=== PATIENT | female | born 1980 | race Caucasian/White ===

== ENCOUNTER 2019-04-07 17:57 | Observation (INO) | payer MEDICARE ==
[~2019-04-07] VITALS: Ht 172.7 cm; Wt 54.5 kg
--- NOTE | 2019-04-07 19:23 | NUR ---
HAND OFF REPORT GIVEN TO MINDI RANKIN
[2019-04-07 19:24] LABS: BASOPHILS 0.3 % (0-2); EOSINOPHILS 1.6 % (0-7); HEMATOCRIT 39.1 % (36.0-48.0); HEMOGLOBIN 13.2 g/dL (12-16); IMMATURE GRANULOCYTES 0.3 % (0-5); MCH 31.2 pg (26.0-34.0); MCHC 33.8 g/dL (31.0-37.0); MCV 92.4 fL (80.0-100.0); MEAN PLATELET VOLUME 9.2 fL (7.4-10.4); NEUTROPHILS 67.8 % (40-80); PLATELET COUNT 311 10x3/uL (130-400); RBC 4.23 10x6/uL (4.00-5.40); RDW 13.2 % (11.5-14.5); WBC 11.6 10x3/uL (4.8-10.8)
[2019-04-07 19:31] LABS: APPEARANCE CLEAR (CLEAR); BILIRUBIN NEGATIVE (NEGATIVE); COLOR STRAW (YELLOW); GLUCOSE NEGATIVE (NEGATIVE); KETONE NEGATIVE (NEGATIVE); NITRITE NEGATIVE (NEGATIVE); PROTEIN NEGATIVE (NEGATIVE); SPECIFIC GRAVITY 1.005 (1.005-1.020); UROBILINOGEN NORMAL (NORMAL)
[2019-04-07 19:32] LABS: BACTERIA FEW /hpf (NONE SEEN); EPITHELIAL CELLS 0-5 /hpf (0-5); RED CELLS - URINE RARE /hpf (0-5); WHITE CELLS - URINE 0-5 /hpf (0-5)
[2019-04-07 19:48] LABS: ALKALINE PHOSPHATASE 59 U/L (46-116); ALT (SGPT) 27 U/L (10-68); BILIRUBIN - TOTAL 0.23 mg/dL (0.2-1.3); CALC OSMOLALITY 268 mosm/kg (275-300); CALCIUM 8.7 mg/dL (8.5-10.1); CHLORIDE - SERUM 100 mmol/L (98-107); CREATININE - SERUM 0.8 mg/dL (0.6-1.3); GLUCOSE 91 mg/dL (74-106); POTASSIUM - SERUM 3.5 mmol/L (3.5-5.1); PROTEIN - SERUM 7.7 g/dL (6.4-8.2); SODIUM 135 mmol/L (136-145); UREA NITROGEN 10 mg/dL (7-18); eGFR NON AFRICAN AMERICAN 84 mL/min (90-120)
[2019-04-07 20:57] LABS: LIPASE 141 U/L (73-393); MAGNESIUM - SERUM 2.1 mg/dL (1.8-2.4); PRO BNP 40 pg/mL (0-125); THYROID STIMULATING HORMONE 3.05 uIU/mL (0.36-3.74)
[2019-04-07 21:00] LABS: TROPONIN-I < 0.017 ng/mL (0.000-0.060)
[2019-04-07 22:05] LABS: HCG URINE NEGATIVE (NEGATIVE)
[2019-04-07 22:10] LABS: UDS - AMPHET NEGATIVE QUAL (NEGATIVE); UDS - BARB NEGATIVE QUAL (NEGATIVE); UDS - BENZO NEGATIVE QUAL (NEGATIVE); UDS - COCAINE NEGATIVE QUAL (NEGATIVE); UDS - OPIATE NEGATIVE QUAL (NEGATIVE); UDS - PCP NEGATIVE QUAL (NEGATIVE); UDS - THC NEGATIVE QUAL (NEGATIVE)
[2019-04-07 23:23] VITALS: BP 130/73; Ht 172.7 cm; Wt 54.5 kg
[2019-04-08] VITALS: BP 118/73
[2019-04-08 04:00] VITALS: BP 95/55
--- NOTE | 2019-04-08 04:00 | NUR ---
RECIEVED PT FROM ED VIA BED. ALERT AND ORIENTED X4. RESPIRATIONS EVEN AND UNALBORED. VS STABLE AND AFEBRILE. NO VISUAL CUES OF DISTRESS NOTED. FAMILY MEMBER AT BEDSIDE. BED LOW, SIDE RAILS UP X2. CALL LIGHT IN REACH. WILL CONTINUE TO MONITOR.
[2019-04-08 08:29] LABS: BASOPHILS 0.4 % (0-2); EOSINOPHILS 1.8 % (0-7); HEMATOCRIT 36.5 % (36.0-48.0); HEMOGLOBIN 12.5 g/dL (12-16); IMMATURE GRANULOCYTES 0.3 % (0-5); LYMPHOCYTES 23.1 % (15-50); MCH 31.1 pg (26.0-34.0); MCHC 34.2 g/dL (31.0-37.0); MCV 90.8 fL (80.0-100.0); MEAN PLATELET VOLUME 9.2 fL (7.4-10.4); MONOCYTES 6.5 % (2-11); NEUTROPHILS 67.9 % (40-80); PLATELET COUNT 269 10x3/uL (130-400); RBC 4.02 10x6/uL (4.00-5.40); RDW 13.2 % (11.5-14.5)
[2019-04-08 08:50] LABS: CALC OSMOLALITY 277 mosm/kg (275-300); CALCIUM 8.3 mg/dL (8.5-10.1); CARBON DIOXIDE 24.2 mmol/L (21.0-32.0); CHLORIDE - SERUM 104 mmol/L (98-107); CREATININE - SERUM 0.8 mg/dL (0.6-1.3); POTASSIUM - SERUM 3.6 mmol/L (3.5-5.1); SODIUM 138 mmol/L (136-145); UREA NITROGEN 9 mg/dL (7-18); eGFR NON AFRICAN AMERICAN 84 mL/min (90-120)
[2019-04-08 08:51] LABS: GLUCOSE 156 mg/dL (74-106)
[2019-04-08 09:13] VITALS: BP 118/66
--- NOTE | 2019-04-08 10:19 | NUR ---
PT ALERT X 4. BREATH SOUNDS CLEAR BILAT. IV TO LEFT AC, SALINE LOCKED. PT REPORTED WORSENING HEADACHE, RATED 5/10, NOTIFIED NURSE PRACTITIONER. PT SITTING UP IN BED. FAMILY AT BEDSIDE. BED LOW, CALL LIGHT IN REACH. NO OTHER NEEDS AT THIS TIME.
--- NOTE | 2019-04-08 13:06 | NUR ---
PT IS BEING TRANSFERRED TO [facility] FOR NEURO. AMBULANCE HERE. PT IS REFUSING TO GO DUE TO THE FACT THAT SHE AND THE FAMILY UNDERSTOOD THE TRANSFER WAS TO BE TO [facility] IN [place] AND THE MOTHER( FAMILY) COULD RIDE IN THE AMBULANCE WITH PT. CDC ASSOCIATE( THIS APPLIED COMPUTER SCIENCE PROFESSOR) SPOKE WITH PT AND FAMILY AND EXPLAINED THE TRANSFER WAS TO [facility] AND EMS POLICY IS NO FAMILY ALLOWED IN AMBULANCE. MOTHER IS VERY UPSET AND SAYS HER CAR CAN NOT MAKE IT TO [place]. SHE WANTS THE PHYSICIAN CALLED. DR. JOHNSON CALLED AND HE EXPLAINED TO PT WHERE SHE WAS GOING AND WHY. PT ACCEPTS THE TRANSFER. MOM IS GOING BY [facility] TO HOSPITAL.
--- NOTE | 2019-04-08 13:15 | NUR ---
PT DISCHARGED. PAPERWORK SIGNED ALL QUESTIONS ANSWERED. TRANSFERRED BY [facility].
--- NOTE | 2019-04-08 14:06 | MORECARE ---
CASE MANAGEMENT DISCHARGE SUMMARY PATIENT: NEAL KELLER UNIT: [id number] ADM DATE: 04/07/19 AGE: 38 : 78 SEX: F ROOM/BED: D.2239 AUTHOR: ALTAF RIVERA PHYSICIAN: REFERRING PHYSICIAN: THANG JOHNSON MD DATE OF SERVICE: 04/08/19 Discharge Plan Patient Name: NEAL KELLER [facility] [facility] 1980 Planned Disposition: Acute Care Hospital Anticipated Discharge Date: 04/08/19 Discharge Date: Expected LOS: 1 Initial Reviewer: [email or web address] Initial Review Date: 04/07/2019 Generated: 04/08/19 3:06 pm Patient Name: NEAL KELLER Page 34811 at 1406 All edits/amendments must be made on the electronic document DICTATION DATE: 04/08/19 140 [employer] MANAG[employer] INTER[employer]IP: HARMEET 04/08/19 1405 RPT#: [id number] DC DATE: STATUS: ADM IN [facility] [address] [place] [address] END OF REPORT
--- NOTE | 2019-04-08 14:19 | MORECARE ---
CASE MANAGEMENT DISCHARGE SUMMARY PATIENT: NEAL KELLER UNIT: [id number] ADM DATE: 04/07/19 AGE: 38 : 76 SEX: F ROOM/BED: D.2239 AUTHOR: ALTAF RIVERA PHYSICIAN: REFERRING PHYSICIAN: THANG JOHNSON MD DATE OF SERVICE: 04/08/19 Discharge Plan Patient Name: NEAL KELLER Facility: [facility]:[place] : 1980 Planned Disposition: Acute Care Hospital Anticipated Discharge Date: 04/08/19 Discharge Date: Expected LOS: 1 Initial Reviewer: [email or web address] Initial Review Date: 04/07/2019 Generated: 04/08/19 3:19 pm Comments DCP- Discharge Planning Updated by [email or web address]: Adrienne Harrington on 04/08/19 1:[address] LATE ENTRY 1015 CM WAS APPROACHED BY TANK TRUCK ENGINE MECHANIC REGARDING EMERGENT TRANSFERE TO [facility] FOR NEUROSURGERY CONSULT ON THIS PATIENT. SHE STATED DR JOHNSON HAD SPOKEN TO DR MONTES AND HE RECOMMENDED THE TRANSFER. CM ASK IF [facility] HAD NO BEDS WOULD [facility] OR [facility] BE APPROPRIATE. JOSE LUGO, STATED SHE WOULD DISCUSS WITH DR JOHNSON AND LET CM KNOW. TC TO EASY ADMIT. SPOKE WITH TOSHA. REFERRAL INFO GIVEN. CM FAXED FACE SHEET DIRECTED. 1030- CM ADVISED BY TANK TRUCK ENGINE MECHANIC THAT DR JOHNSON WAS SPEAKING WITH NEUROSURGERY AT [facility] AND PATIENT HAD BEEN ACCEPTED. TC TO EASY ADMIT. SPOKE W/ NEAL. SHE WILL ADVISE TOSHA. EASY ADMIT [phone]. FAX [phone]. PCS FORM, COBRA FORM GIVEN TO PRIMARY NURSE. CHART COPY PREPARED. PARKING LOT CHAUFFEUR TO OBTAIN X/R ON DISC. NO DISC FOR MRI DONE OFFSITE. REPORT ADDED TO THE TRANSFER PACKET. PRIMARY NURSE TO COMPLETE TRANSFER SHEETS AND PACKET. PATIENT WAS ACCEPTED TO ROOM [address] KINGSLEY. [facility] [employer] TO PROVIDE TRANSPORTATION. Last DP export: 04/08/19 1:06 p Patient Name: NEAL KELLER Page [id number] at 1419 All edits/amendments must be made on the electronic document DICTATION DATE: 04/08/191417 PRIMARY SPECIAL EDUCATOR: HARMEET 04/08/191417 RPT#: [id number] DC DATE: STATUS: ADM IN [facility] [address] [place] [address] END OF REPORT
--- NOTE | 2019-04-11 10:11 | MORECARE ---
CASE MANAGEMENT DISCHARGE SUMMARY PATIENT: NEAL KELLER UNIT: [id number] ADM DATE: 04/07/19 AGE: 38 : 76 SEX: F ROOM/BED: D.2239 AUTHOR: ALTAF RIVERA PHYSICIAN: REFERRING PHYSICIAN: THANG JOHNSON MD DATE OF SERVICE: 04/11/19 Discharge Plan Patient Name: NEAL KELLER Facility: [facility]:[place] : 1980 Planned Disposition: Acute Care Hospital Anticipated Discharge Date: 04/08/19 Discharge Date: 04/08/2019 Expected LOS: 1 Initial Reviewer: [email or web address] Initial Review Date: 04/07/2019 Generated: 04/11/19 11:11 am Comments DCP- Discharge Planning Updated by [email or web address]: Adrienne Harrington on 04/08/19 1:[address] LATE ENTRY 1015 CM WAS APPROACHED BY TIMBER DEADENER REGARDING EMERGENT TRANSFERE TO [facility] FOR NEUROSURGERY CONSULT ON THIS PATIENT. SHE STATED DR JOHNSON HAD SPOKEN TO DR MONTES AND HE RECOMMENDED THE TRANSFER. CM ASK IF [facility] HAD NO BEDS WOULD [facility] OR [facility] BE APPROPRIATE. JOSE LUGO, STATED SHE WOULD DISCUSS WITH DR JOHNSON AND LET CM KNOW. TC TO EASY ADMIT. SPOKE WITH TOSHA. REFERRAL INFO GIVEN. CM FAXED FACE SHEET DIRECTED. 1030- CM ADVISED BY TIMBER DEADENER THAT DR JOHNSON WAS SPEAKING WITH NEUROSURGERY AT [facility] AND PATIENT HAD BEEN ACCEPTED. TC TO EASY ADMIT. SPOKE W/ NEAL. SHE WILL ADVISE TOSHA. EASY ADMIT [phone]. FAX [phone]. PCS FORM, COBRA FORM GIVEN TO PRIMARY NURSE. CHART COPY PREPARED. BOTTLE CAPPER TO OBTAIN X/R ON DISC. NO DISC FOR MRI DONE OFFSITE. REPORT ADDED TO THE TRANSFER PACKET. PRIMARY NURSE TO COMPLETE TRANSFER SHEETS AND PACKET. PATIENT WAS ACCEPTED TO ROOM [address] KINGSLEY. [facility] TO PROVIDE TRANSPORTATION. Last DP export: 04/08/19 1:19 p Patient Name: NEAL KELLER Page 31876 at 1011 All edits/amendments must be made on the electronic document DICTATION DATE: 04/11/19 1011 SHADE MATCHER: HARMEET 04/11/19 1011 RPT#: [id number] DC DATE:04/08/19 STATUS: DIS IN [facility] [address] [place] [address] END OF REPORT
== END 2019-04-08 13:15 | disposition short-term general hospital (02) ==
LOC: D.ER 17:57 → D.EDHOLD 20:01 → D.MS 20:01 → OBSVTIME 20:01 → D.MS 20:13
PROVIDERS: Family Medicine; ADMIT Internal Medicine Nephrology; ATTEND Internal Medicine Nephrology
DX: G43.909 Migraine, unspecified, not intractable, without status migrainosus (principal); R26.89 Other abnormalities of gait and mobility; R42 Dizziness and giddiness; Z91.81 History of falling; Z87.891 Personal history of nicotine dependence